=== PATIENT | female | born 1955 | race Caucasian/White ===

== ENCOUNTER 2021-11-30 16:55 | Observation (INO) | payer MEDICARE ==
--- OUTSIDE RECORDS SUMMARY | 2021-11-30 16:59 | XMS REPORT | Continuity of Care Document ---
:1955 Author Organization [facility] t Address [address] [place] [address] Care Team Providers Name Role Phone Pcp, Patient Does Not Have A Primary Care Physician [phone] Franci Valdivia Attending Clinician Unavailable Denisse Bailey Attending Clinician Unavailable Sheth_M Attending Clinician Unavailable OWENS_T Attending Clinician Unavailable Lara Ramirez Attending Clinician Trudi Scott RN Attending Clinician Unavailable Only, Ang Db Test Attending Clinician Unavailable Unknown, Attending Attending Clinician Unavailable UNKNOWN, ATTENDING Attending Clinician Unavailable BWilliams Attending Clinician Unavailable Lab, Adc Fam Pob I Attending Clinician Unavailable Caterina Melgar Attending Clinician CATERINA DEE Attending Clinician Unavailable Sobia Tolliver Attending Clinician SOBIA ANTONIO Attending Clinician Unavailable Doctor Unassigned, [place] Attending Clinician Unavailable LARISA Attending Clinician Unavailable Sheth_M Admitting Clinician Unavailable OWENS_T Admitting Clinician Unavailable BWilliams Admitting Clinician Unavailable AMBREENSATYA Admitting Clinician Unavailable Payers Payer Name Policy Type Policy Number Effective Date Expiration Date S cassi [facility] DAYZJR 2020 (MEDICARE 00:00:00 REPLACEMENT HMO) [facility] [id number] (MEDICARE 00:00:00 REPLACEMENT/ADVANTAG E - HMO) [facility] [id number] [place]ICARE [place]: [id number] 2018 [facility] - 00:00:00 [facility] MEDICARE B[place]: [id number] 2018 [facility] 00:00:00 Problems Condition Condition Condition Status Onset Resolution Last Treating Co mments Source Name Details Category Date Date Treatment Clinician Date Chronic Chronic Problem Active [place] obstructiv Obstructiv 11-11 da e lung e Lung 00:00: [facility] disease Disease 00 al Health Outreac h Program Allergies, Adverse Reactions, Alerts Allergy Allergy Status Severity Reaction(s) Onset Inactive Treating Comm ents Source Name Type Date Date Clinician NO KNOWN Drug Active Univers ALLERGIE Class ity of [facility] Social History Social Habit Start Date Stop Date Quantity Comments Source Exposure to Not sure [facility] SARS-CoV-2 (event) Medica l Branch Sex Assigned At [birth year] [facility] 00:00:00 00:00:00 [facility] Smoking Status Start Date Stop Date Source Unknown if ever smoked [facility] Former Smoker [facility] Medications Ordered Filled Start Stop Current Ordering Indication Dosage Frequency Signature Comments Components Source Medication Medication Date Date Medication? Clinician (SIG) Name Name albuterol albuterol No 2puff(s Q6H albuterol [place] sulfate HFA sulfate HFA ) sulfate da 90 90 HFA 90 [facility] mcg/actuati mcg/actuati mcg/actuat al on aerosol on aerosol ion Hea lth inhaler inhaler aerosol Outrea c Inhale 2 Inhale 2 inhaler h puffs every puffs every Inhale 2 Program 6 hours by 6 hours by puffs inhalation inhalation every 6 route as route as hours by needed. needed. inhalation route as needed. atorvastati atorvastati No 1 Q1D atorvastat [place] n 40 mg n 40 mg in 40 mg da tablet Take tablet Take tablet [facility] 1 tablet 1 tablet Take 1 al every day every day tablet Hea lth by oral by oral every day Outr eac route. route. by oral h route. Program citalopram citalopram No citalopram [place] 20 mg 20 mg 20 mg da tablet TAKE tablet TAKE tablet [facility] 1 TABLET BY 1 TABLET BY TAKE 1 al MOUTH ONCE MOUTH ONCE TABLET BY Health DAILY DAILY MOUTH ONCE Outreac DAILY h Program levothyroxi levothyroxi No levothyrox [place] ne 25 mcg ne 25 mcg ine 25 mcg da tablet TAKE tablet TAKE tablet [facility] 1 TABLET BY 1 TABLET BY TAKE 1 al MOUTH ONCE MOUTH ONCE TABLET BY Health DAILY DAILY MOUTH ONCE Outreac DAILY h Program omeprazole omeprazole No omeprazole [place] 20 mg 20 mg 20 mg da capsule,del capsule,del capsule,de [facility] ayed ayed layed al release TK release TK release TK Health 1 C PO QD 1 C PO QD 1 C PO QD Outreac h Program Symbicort Symbicort No Symbicort [place] 160 mcg-4.5 160 mcg-4.5 160 d a mcg/actuati mcg/actuati mcg-4.5 [facility] on HFA on HFA mcg/actuat al aerosol aerosol ion HFA Health inhaler INL inhaler INL aerosol Outreac 2 PFS PO 2 PFS PO inhaler h BID BID INL 2 PFS Program PO BID Immunizations Ordered Filled Immunization Date Status Comments [facility] e Immunization Name Name SARS-COV-2 COVID-19 2020-06-23 Completed Unive rsity of PFIZER VACCINE 00:00:00 [facility] SARS-COV-2 COVID-19 2020-06-23 Completed Unive rsity of PFIZER VACCINE 00:00:00 [facility] SARS-COV-2 COVID-19 2020-06-23 Completed Unive rsity of PFIZER VACCINE 00:00:00 [facility] SARS-COV-2 COVID-19 2020-06-02 Completed Unive rsity of PFIZER VACCINE 00:00:00 [facility] SARS-COV-2 COVID-19 2020-06-02 Completed Unive rsity of PFIZER VACCINE 00:00:00 [facility] SARS-COV-2 COVID-19 2020-06-02 Completed Unive rsity of PFIZER VACCINE 00:00:00 [facility] influenza, influenza, 2019-01-25 Completed [facility] injectable, injectable, 13:10:04 [facility] He alth quadrivalent, quadrivalent, Outreach Program preservative free preservative free Tdap Tdap 2018-12-23 Completed [facility] 12:32:57 [facility] Outreach Progr am pneumococcal pneumococcal 2018-12-23 Completed [facility] conjugate PCV 13 conjugate PCV 13 12:31:43 [facility] Outreach Progr am Vital Signs Vital Name Observation Time Observation Value Comments Source BP Diastolic 2019-09-15 00:00:00 78 mm[Hg] [facility] Height 2019-09-15 00:00:00 59 [in_i] [facility] BMI (Body Mass 2019-09-15 00:00:00 21.1 kg/m2 [place]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) Health Outreach Program BP Systolic 2019-09-15 00:00:00 122 mm[Hg] [facility] Body Weight 2019-09-15 00:00:00 1675.2 [oz_av] [place]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 [facility] BP Diastolic 2019-05-05 00:00:00 80 [facility] Height 2019-05-05 00:00:00 59 [in_i] [facility] BMI (Body Mass 2019-05-05 00:00:00 20.2 kg/m2 [place]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) Health Outreach Program BP Systolic 2019-05-05 00:00:00 136 mm[Hg] [facility] Body Weight 2019-05-05 00:00:00 99.9 [lb_av] [facility] BP Diastolic 2019-03-24 00:00:00 88 mm[Hg] [facility] Height 2019-03-24 00:00:00 59 [in_i] [facility] BMI (Body Mass 2019-03-24 00:00:00 19.1 kg/m2 [place]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) Health Outreach Program BP Systolic 2019-03-24 00:00:00 128 mm[Hg] [place] [facility] Body Weight 2019-03-24 00:00:00 94.8 [lb_av] [facility] BP Diastolic 2019-03-23 00:00:00 81 mm[Hg] [facility] Height 2019-03-23 00:00:00 59 [in_i] [place] [facility] BMI (Body Mass 2019-03-23 00:00:00 19.5 kg/m2 [place]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) Health Outreach Program BP Systolic 2019-03-23 00:00:00 132 mm[Hg] [facility] Body Weight 2019-03-23 00:00:00 96.3 [lb_av] [facility] BP Diastolic 2019-02-24 00:00:00 84 mm[Hg] [facility] Height 2019-02-24 00:00:00 59 [in_i] [facility] BMI (Body Mass 2019-02-24 00:00:00 19.9 kg/m2 [place]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) Health Outreach Program BP Systolic 2019-02-24 00:00:00 136 mm[Hg] [facility] Body Weight 2019-02-24 00:00:00 98.3 [lb_av] [facility] BP Diastolic 2019-01-25 00:00:00 78 mm[Hg] [facility] Height 2019-01-25 00:00:00 59 [in_i] [facility] BMI (Body Mass 2019-01-25 00:00:00 19.6 kg/m2 [place]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) Health Outreach Program BP Systolic 2019-01-25 00:00:00 112 mm[Hg] [facility] Body Weight 2019-01-25 00:00:00 96.8 [lb_av] [place] [facility] BP Diastolic 2018-12-23 00:00:00 70 mm[Hg] [place] [facility] Height 2018-12-23 00:00:00 59 [in_i] [place] [facility] BMI (Body Mass 2018-12-23 00:00:00 20 kg/m2 [place]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) Health Outreach Program BP Systolic 2018-12-23 00:00:00 136 mm[Hg] [facility] Body Weight 2018-12-23 00:00:00 99 [lb_av] [facility] BP Diastolic 2018-11-25 00:00:00 82 mm[Hg] [place] [facility] Height 2018-11-25 00:00:00 59 [in_i] [facility] BMI (Body Mass 2018-11-25 00:00:00 19.3 kg/m2 [place]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) Health Outreach Program BP Systolic 2018-11-25 00:00:00 130 mm[Hg] [place] [facility] Body Weight 2018-11-25 00:00:00 95.6 [lb_av] [facility] BP Diastolic 2018-11-11 00:00:00 70 mm[Hg] [facility] Height 2018-11-11 00:00:00 59 [in_i] [facility] BMI (Body Mass 2018-11-11 00:00:00 19.5 kg/m2 [place]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) Health Outreach Program BP Systolic 2018-11-11 00:00:00 112 mm[Hg] [facility] Body Weight 2018-11-11 00:00:00 96.5 [lb_av] [facility] Procedures Procedure Date / Time Performing Clinician Source Performed ELECTROCARDIOGRAM, 2019-02-04 00:00:00 [facility] COMPLETE Health Outreach Program DXA BONE DENSITY, AXIAL 2019-01-25 00:00:00 Ruvalcaba danika [facility] [place], thyroid 2018-12-23 00:00:00 [facility] LDCT, chest, for lung 2018-11-25 00:00:00 [place]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 [facility] cancer screening Health Outreach Program MAMMO, diagnostic, 2018-11-11 00:00:00 [facility] digital, bilateral Health Outrea ch Program US, breast, bilateral 2018-11-11 00:00:00 [place]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 [facility] Splenectomy [facility] Hysteroscopy [facility] Plan of Care Planned Activity Planned Date Details Comments Source Future Scheduled 2019-12-16 lipid panel, serum [place] [facility] Test 00:00:00 [code = lipid Health Outreac h panel, serum] Program Future Scheduled 2019-12-16 CMP, serum or [facility] Test 00:00:00 plasma [code = Health Outrea ch CMP, serum or Program plasma] Future Scheduled 2019-12-16 TSH + free T4, [facility] Test 00:00:00 serum [code = TSH Health Out reach + free T4, serum] Program Encounters Start End Encounter Admission Attending Care Care Encounter Source Date/Time Date/Time Type Type Clinicians Facility Department ID 2021-04-10 Outpatient Valdivia, Na STLMLC STLMLC [id number] Common 13:56:21 [id number] [facility] 2021-04-10 Outpatient Valdivia, Na STLMLC STLMLC [id number] 2 Common 13:46:37 06727 [facility] 2021-04-10 Outpatient Valdivia, Na STLMLC STLMLC [id number] 2 Common 13:45:36 [id number] [facility] 2021-04-10 Outpatient Valdivia, Na STLMLC STLMLC [id number] 2 Common 12:43:39 [id number] [facility] 2021-04-10 Outpatient Valdivia, Na STLMLC STLMLC [id number] 2 Common 12:43:03 [id number] [facility] 2021-04-10 Outpatient STLMLC STLMLC [id number] Common 12:36:02 [id number] [facility] 2021-04-10 Outpatient STLMLC STLMLC [id number] Common 12:34:56 [id number] [facility] 2021-04-10 Outpatient STLMLC STLMLC [id number] Common 12:17:58 [id number] [facility] 2021-04-10 Outpatient Millender, STLMLC STLMLC [id number] Common 11:57:24 Denisse [id number] [facility] 2021-04-10 Outpatient Millender, STLMLC STLMLC [id number] Common 11:56:21 Denisse [id number] [facility] 2021-04-10 Outpatient Millender, STLMLC STLMLC [id number] Common 11:32:19 Denisse [id number] [facility] 2021-11-25 2021-11-25 ambulatory STLMLC STLMLC [id number] Common 00:00:00 00:00:00 [facility] 2021-11-19 2021-11-19 ambulatory STLMLC STLMLC [id number] Common 00:00:00 00:00:00 [facility] 2021-11-14 2021-11-14 Outpatient Shebarbi_M [facility] [id number] [facility] 00:00:00 00:00:00 0901 [facility] 2021-11-13 2021-11-13 ambulatory STLMLC STLMLC [id number] Common 00:00:00 00:00:00 [facility] 2021-11-13 2021-11-13 ambulatory STLMLC STLMLC [id number] Common 00:00:00 00:00:00 [facility] 2021-11-13 2021-11-13 ambulatory STLMLC STLMLC [id number] Common 00:00:00 00:00:00 [facility] 2021-10-29 2021-10-29 ambulatory STLMLC STLMLC [id number] Common 00:00:00 00:00:00 [facility] 2021-10-16 2021-10-16 ambulatory STLMLC STLMLC [id number] Common 00:00:00 00:00:00 [facility] 2021-09-27 2021-09-27 Outpatient OWENS_T DMG DMG [id number] Devoted 03:30:00 03:30:00 0715 [facility] l [facility] 2021-09-13 2021-09-13 ambulatory STLMLC STLMLC [id number] Common 00:00:00 00:00:00 [facility] 2021-05-03 2021-05-03 [facility] [id number] [facility] 09:00:00 09:00:00 0218 [facility]ica l [facility] 2021-04-11 2021-04-11 ambulatory STLMLC STLMLC [id number] Common 00:00:00 00:00:00 [facility] 2021-03-18 2021-03-18 CAV Tomora [id number]. [id number]. CLAC [id number] [facility] 15:00:00 16:00:00 Ramirez [id number] [facility] [id number] 2021-03-13 2021-03-13 Outpatient OWENS_T DMG [facility] [id number] Devoted 11:25:00 11:25:00 1229 Medica l Group 2020-11-23 2020-11-23 Letter DILLON Scott [id number] Univers 00:00:00 00:00:00 (Out) Trudi CORTEZ [id number] it y of [facility] [id number] [place] as [phone] [address] 2020-11-21 2020-11-21 Laboratory Only, Ang Db Test [facility] 1.2.8 40.114 [id number] Univers 17:15:54 17:18:52 Only Unknown, Attending [facility] [id number] [facility] [id number] [place] as Contreras?Blea [phone] [address] Medical Office Building 2020-11-21 2020-11-21 Outpatient [facility] [id number] Univers 17:15:00 17:15:00 [id number] ity [facility] 2020-11-21 2020-11-21 Outpatient R UNKNOWN, [facility] [id number] Univers 17:15:00 17:15:00 ATTENDING ity [facility] 2020-11-21 2020-11-21 Outpatient STLMLC STLC [id number] Common 00:00:00 00:00:00 [facility] 2020-09-18 2020-09-18 Outpatient STLMLC STLMLC [id number] Common 00:00:00 00:00:00 [facility] 2020-09-13 2020-09-13 Outpatient STLMLC STLMLC [id number] Common 00:00:00 00:00:00 [facility] 2020-09-03 2020-09-03 Outpatient STLMLC STLMLC [id number] Common 00:00:00 00:00:00 [facility] 2020-08-29 2020-08-29 Outpatient STLMLC STLMLC [id number] Common 00:00:00 00:00:00 [facility] 2020-07-27 2020-07-27 Outpatient STLMLC STLMLC [id number] Common 00:00:00 00:00:00 [facility] 2020-07-24 2020-07-24 Outpatient BWilliams DMG DMG [id number] [facility] 02:35:00 02:35:00 0511 Medica l Group 2020-07-18 2020-07-18 Outpatient STLMLC STLMLC [id number] Common 00:00:00 00:00:00 [facility] 2020-07-18 2020-07-18 Outpatient STLMLC STLMLC [id number] Common 00:00:00 00:00:00 [facility] 2020-06-23 2020-06-23 Outpatient [facility] [id number] Univers 09:50:00 09:50:00 [facility] 2020-06-06 2020-06-06 Outpatient STLMLC STLMLC [id number] Common 00:00:00 00:00:00 [facility] 2020-06-02 2020-06-02 Outpatient [facility] [id number] Univers 09:45:00 09:45:00 [facility] 2020-04-12 2020-04-12 Outpatient R [facility] [id number] Univers 08:00:00 08:00:00 [id number] [facility] 2020-04-11 2020-04-11 Laboratory Lab, [facility] Fam Pob I [facility] 1.2. 840.114 [id number] Univers 17:25:34 17:45:34 Only Caterina [facility] [id number] ity of [place] [id number] Baltazar as Professio [phone] [address] Office Building One 2020-04-11 2020-04-11 Laboratory Lab, [facility] 1..840.114 [id number] 17:25:34 17:45:34 Only Fam Pob I Health [id number] [place] [id number] Professio [phone] [place] [address] Office [address] One 2020-04-11 2020-04-11 Outpatient R [facility] [id number] Univers 17:40:00 17:40:00 [id number] y [facility] 2020-04-11 2020-04-11 Outpatient R MILADY [facility] [id number] Univers 17:40:00 17:40:00 CATERINA saenz [facility] 2020-01-04 2020-01-04 Outpatient STLMLC STLMLC [id number] Common 00:00:00 00:00:00 [facility] 2019-10-04 2019-10-04 Outpatient STLMLC STLMLC [id number] Common 00:00:00 00:00:00 [facility] 2019-09-27 2019-09-27 Laboratory Lab, [facility] Pob I [facility] 1.. 840.114 [id number] Univers 10:50:40 11:10:40 Only [facility] [id number] ity of [place] [id number] [place] as Professio [phone] [address] Office Building One 2019-09-27 2019-09-27 Laboratory Lab, [facility] 1.2.840.114 [id number] 10:50:40 11:10:40 Only Fam Pob I Health [id number] [place] [id number] Professio [phone] [place] [address] Office [address] One 2019-09-27 2019-09-27 Outpatient R JHOAN, [facility] [id number] Univers 11:00:00 11:00:00 SOBIA emmyana [facility] 2019-09-27 2019-09-27 Letter Doctor DILLON 1.2.840.114 [id number] Univers 00:00:00 00:00:00 (Out) Unassigned, DIEGO [id number] ity of [place] [facility] [id number] [place] as [phone] [address] 2019-09-27 2019-09-27 Letter Doctor DILLON 1.2.840.114 [id number] 00:00:00 00:00:00 (Out) Unassigned, [id number] [facility] [id number] [id number] 2019-09-15 2019-09-15 Outpatient AMBREEN_FAR [facility] [place] [id number] [place] 12:23:00 12:23:00 HANA 0702 [facility] 2019-09-15 2019-09-15 [facility] [place] - [id number] M atagor 00:00:00 00:00:00 Mary Ann Villanueva MD: [id number] [facility] 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 2019-09-13 2019-09-13 Outpatient AMBREEN_FAR WIHOP [facility] [id number] [place] 01:03:00 01:03:00 HANA 0630 [facility] 2019-09-08 2019-09-08 Outpatient AMBREEN_FAR MEHOP [facility] 880 [place] 12:10:00 12:10:00 HANA 0625 [facility] 2019-08-31 2019-08-31 Outpatient AMBREEN_FAR WIHOP [facility] 880 [place] 12:44:00 12:44:00 HANA 0617 [facility] 2019-07-27 2019-07-27 Outpatient AMBREEN_FAR MEHOP MEHOP [id number] [place] 12:38:00 12:38:00 HANA 0513 [facility] 2019-06-22 2019-06-22 Outpatient AMBREEN_FAR MEHOP MEHOP [id number] [place] 01:23:00 01:23:00 HANA 0408 [facility] 2019-05-05 2019-05-05 Outpatient AMBREEN_FAR MEHOP MEHOP [id number] [place] 02:12:00 02:12:00 HANA 0220 [facility] 2019-05-05 2019-05-05 Jodie [facility] [place] - [id number] M atagor 00:00:00 00:00:00 Mary Ann Villanueva MD: [id number] [facility] Ep[facility] copper pl[place] 59 HOP - [facility], [facility] Program [phone] , Ph. 2019-04-28 2019-04-28 Outpatient AMBREEN_FAR MEHOP MEHOP [id number] [place] 03:09:00 03:09:00 HANA 0213 [facility] 2019-04-14 2019-04-14 Outpatient AMBREEN_FAR MEHOP MEHOP [id number] [place] 02:16:00 02:16:00 HANA 0130 [facility] 2019-04-01 2019-04-01 Outpatient AMBREEN_FAR MEHOP MEHOP [id number] [place] 12:09:00 12:09:00 HANA 0117 [facility] 2019-03-24 2019-03-24 Outpatient AMBREEN_FAR MEHOP MEHOP [id number] [place] 12:32:00 12:32:00 HANA 0109 [facility] 2019-03-24 2019-03-24 Jodie [facility] [place] - [id number] M atagor 00:00:00 00:00:00 Mary Ann Villanueva MD: [id number] [facility] Ep[facility] [place] 59 HOP - [facility], [facility] [place] Program [phone] , Ph. 2019-03-23 2019-03-23 Outpatient AMBREEN_BRIE [facility] 88 [place] 05:34:00 05:34:00 HANA 0108 da [facility] Program 2019-03-23 2019-03-23 Dax Waterman [facility] [place] - [id number] [place] 00:00:00 00:00:00 Mar yAnn Christy MD: [id number] [facility] [place] [address] [facility] A, [facility] [place] Program [phone] , Ph. 2019-03-21 2019-03-21 Outpatient AMBREEN_BRIE [place] [id number] [place] 03:07:00 03:07:00 HANA 0106 da [facility] Program 2019-02-24 2019-02-24 Jodie [facility] [place] - [id number] M atagor 00:00:00 00:00:00 Mary Ann Villanueva MD: [id number] [facility] [place] [address] [facility] A, [facility] [place] Program [phone] , Ph. 2019-01-25 2019-01-25 Jodie [facility] [place] - [id number] M atagor 00:00:00 00:00:00 Mary Ann Villanueva MD: [id number] [facility] Ep[facility] [place] [address] [facility] A, [facility] [place] Program [phone] , Ph. 2018-12-23 2018-12-23 Jodie [facility] [place] - [id number] M atagor 00:00:00 00:00:00 Mary Ann Villanueva MD: [id number] [facility] [place] [address] [facility] A, [facility] [place] Program [phone] , Ph. 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 2018-11-11 2018-11-11 Jodie [place] - [id number] atagor 00:00:00 00:00:00 Mary Ann Villanueva MD: [id number] [facility] Epis copper plater [place] [address] [facility] [address], [facility] [place] Program [phone] , Ph. Results Test Description Test Time Test Comments Results Result Comments Source Comprehensive metabolic 2000 panel - Serum or Plasma 2019-08 00:00:00 Test Item Value Reference Range Interpretation Comme nts glucose (test code = glucose) 81 mg/dL 70-99 BUN (test code = BUN) 18 mg/dL 8-23 creatinine (test code = creatinine) 0.75 mg/dL 0.60-1.30 eGFR amer. (test code = eGFR amer.) 96 mL/min/1.73 >60 eGFR non- amer. (test code = eGFR non- 83 mL/min/1.73 >60 amer.) calc BUN/creat (test code = calc BUN/creat) 24 ratio 6-28 sodium (test code = sodium) 144 mEq/L 133-146 potassium (test code = potassium) 5.1 mEq/L 3.5-5.4 chloride (test code = chloride) 104 mEq/L 95-107 carbon dioxide (test code = carbon dioxide) 25 mEq/L 19-31 calcium (test code = calcium) 10.0 mg/dL 8.5-10.5 protein, total (test code = protein, total) 7.5 g/dL 6.1-8.3 albumin (test code = albumin) 4.7 g/dL 3.5-5.2 calc globulin (test code = calc globulin) 2.8 g/dL 1.9-3.7 calc A/G ratio (test code = calc A/G ratio) 1.7 ratio 1.0-2.6 bilirubin, total (test code = bilirubin, total) <0.2 <=1.2 alkaline phosphatase (test code = alkaline phosphatase) 72 U/L 40-142 AST (test code = AST) 17 U/L 9-40 ALT (test code = ALT) 12 U/L 5-40 [facility] - Serum or Plasma 2019-09-09 00:00:00 Test Item Value Reference Range Interpretation Comments cholesterol (test code = 203 mg/dL <200 H cholesterol) triglycerides (test code = 135 mg/dL <150 triglycerides) HDL cholesterol (test code = HDL 51 mg/dL >39 cholesterol) Cholesterol in LDL [Mass/volume] 127 mg/dL <100 H in Serum or Plasma (test code = 2089-1) risk ratio LDL/HDL (test code = 2.49 ratio <3.22 risk ratio LDL/HDL) [facility] T[facility] - Serum or [id number] 00:00:00 Test Item Value Reference Range Interpretation Comments TSH, third generation (test code 2.690 uIU/mL 0.400-4.100 = TSH, third generation) free T4 (thyroxine) (test code = 0.84 NG/dL 0.80-1.90 free T4 (thyroxine)) [facility] 1995 panel - Serum or Plasma 2019-04-29 00:00:00 Test Item Value Reference Range Interpretation Comments cholesterol (test code = 225 mg/dL <200 H cholesterol) triglycerides (test code = 155 mg/dL <150 H triglycerides) HDL cholesterol (test code = HDL 53 mg/dL >39 cholesterol) Cholesterol in LDL [Mass/volume] 141 mg/dL <100 H in Serum or Plasma (test code = 2089-1) risk ratio LDL/HDL (test code = 2.66 ratio <3.22 risk ratio LDL/HDL) [facility] 2000 panel - Serum or [id number] 00:00:00 Test Item Value Reference Range Interpretation Comments glucose (test code = glucose) 84 mg/dL 70-99 BUN (test code = BUN) 6 mg/dL 8-23 L creatinine (test code = 0.73 mg/dL 0.60-1.30 creatinine) eGFR amer. (test code 99 mL/min/1.73 >60 = eGFR amer.) eGFR non- amer. (test 86 mL/min/1.73 >60 code = eGFR non- amer.) calc BUN/creat (test code = 8 ratio 6-28 calc BUN/creat) sodium (test code = sodium) 142 mEq/L 133-146 potassium (test code = 4.4 mEq/L 3.5-5.4 potassium) chloride (test code = 101 mEq/L 95-107 chloride) carbon dioxide (test code = 26 mEq/L 19-31 carbon dioxide) calcium (test code = calcium) 9.7 mg/dL 8.5-10.5 protein, total (test code = 7.4 g/dL 6.1-8.3 protein, total) albumin (test code = albumin) 4.5 g/dL 3.5-5.2 calc globulin (test code = 2.9 g/dL 1.9-3.7 calc globulin) calc A/G ratio (test code = 1.6 ratio 1.0-2.6 calc A/G ratio) bilirubin, total (test code = 0.3 mg/dL <=1.2 bilirubin, total) alkaline phosphatase (test 85 U/L 40-142 code = alkaline phosphatase) AST (test code = AST) 24 U/L 9-40 ALT (test code = ALT) 14 U/L 5-40 [facility] T[facility] panel - Serum or [id number] 00:00:00 Test Item Value Reference Range Interpretation Comments TSH, third generation (test code 3.910 uIU/mL 0.400-4.100 = TSH, third generation) free T4 (thyroxine) (test code = 0.89 NG/dL 0.80-1.90 free T4 (thyroxine)) [facility] HospitalHepatitis C virus Ab [Units/volume] in [id number] 00:00:00 Test Item Value Reference Range Interpretation Comments hepatitis C antibody (test code non-reactive non-reactive = hepatitis C antibody) [facility] virus Ab [Units/volume] in [id number] 00:00:00 Test Item Value Reference Range Interpretation Comments hepatitis C antibody (test code non-reactive non-reactive = hepatitis C antibody) [facility]Hep[facility] virus Ab [Units/volume] in [id number] 00:00:00 Test Item Value Reference Range Interpretation Comments hepatitis C antibody (test code non-reactive non-reactive = hepatitis C antibody) [facility] HospitalChlamydia trachomatis+Neisseria gonorrhoeae DNA [Presence] in Urine by Probe and target amplification method 2019-02-26 00:00:00 Test Item Value Reference Range Interpretation Comments chlamydia by tma (test code = negative negative chlamydia by tma) gonorrhea by tma (test code = negative negative gonorrhea by tma) [facility] HospitalChlamydia trachomatis+Neisseria gonorrhoeae DNA [Presence] in Urine by Probe and target amplification method 2019-02-26 00:00:00 Test Item Value Reference Range Interpretation Comments chlamydia by tma (test code = negative negative chlamydia by tma) gonorrhea by tma (test code = negative negative gonorrhea by tma) [facility]Chlamydia trachomatis+Neisseria gonorrhoeae DNA [Presence] in Urine by Probe and target amplification method 2019-02-26 00:00:00 Test Item Value Reference Range Interpretation Comments chlamydia by tma (test code = negative negative chlamydia by tma) gonorrhea by tma (test code = negative negative gonorrhea by tma) [facility] Hospitaltrich[facility] vaginalis RNA, urine 2019-02-25 00:00:00 Test Item Value Reference Range Interpretation Comments trichomonas, urine, amp (test code = positive A trichomonas, urine, amp) [facility], urine 2019-02-25 00:00:00 Test Item Value Reference Range Interpretation Comments trichomonas, urine, amp (test code = positive A trichomonas, urine, amp) [facility] Programtrichomonas vaginalis RNA, urine 2019-02-25 00:00:00 Test Item Value Reference Range Interpretation Comments trichomonas, urine, amp (test code = positive A trichomonas, urine, amp) [facility] 1996 panel - Serum or Plasma 2019-02-18 00:00:00 Test Item Value Reference Range Interpretation Comments cholesterol (test code = 262 mg/dL <200 H cholesterol) triglycerides (test code = 244 mg/dL <150 H triglycerides) HDL cholesterol (test code = HDL 35 mg/dL >39 L cholesterol) Cholesterol in LDL [Mass/volume] 178 mg/dL <100 H in Serum or Plasma (test code = 2089-1) risk ratio LDL/HDL (test code = 5.09 ratio <3.22 H risk ratio LDL/HDL) [facility] HospitalCom[facility] 1999 panel - Serum or [id number] 00:00:00 Test Item Value Reference Range Interpretation Comments glucose (test code = glucose) 81 mg/dL 70-99 BUN (test code = BUN) 10 mg/dL 8-23 creatinine (test code = 0.68 mg/dL 0.60-1.30 creatinine) eGFR amer. (test code 106 mL/min/1.73 >60 = eGFR amer.) eGFR non- amer. (test 92 mL/min/1.73 >60 code = eGFR non- amer.) calc BUN/creat (test code = 15 ratio 6-28 calc BUN/creat) sodium (test code = sodium) 140 mEq/L 133-146 potassium (test code = 4.7 mEq/L 3.5-5.4 potassium) chloride (test code = 101 mEq/L 95-107 chloride) carbon dioxide (test code = 27 mEq/L 19-31 carbon dioxide) calcium (test code = calcium) 9.3 mg/dL 8.5-10.5 protein, total (test code = 7.1 g/dL 6.1-8.3 protein, total) albumin (test code = albumin) 3.9 g/dL 3.5-5.2 calc globulin (test code = 3.2 g/dL 1.9-3.7 calc globulin) calc A/G ratio (test code = 1.2 ratio 1.0-2.6 calc A/G ratio) bilirubin, total (test code = <0.2 <=1.2 bilirubin, total) alkaline phosphatase (test 71 U/L 40-140 code = alkaline phosphatase) AST (test code = AST) 15 U/L 9-40 ALT (test code = ALT) 9 U/L 5-40 [facility]Free T4 and TSH panel - Serum or [id number] 00:00:00 Test Item Value Reference Range Interpretation Comments TSH, third generation (test 11.100 uIU/mL 0.400-4.100 H code = TSH, third generation) free T4 (thyroxine) (test code 0.49 NG/dL 0.80-1.90 L = free T4 (thyroxine)) [facility] HospitalLip[facility] 1996 panel - Serum or Plasma 2019-02-18 00:00:00 Test Item Value Reference Range Interpretation Comments cholesterol (test code = 262 mg/dL <200 H cholesterol) triglycerides (test code = 244 mg/dL <150 H triglycerides) HDL cholesterol (test code = HDL 35 mg/dL >39 L cholesterol) Cholesterol in LDL [Mass/volume] 178 mg/dL <100 H in Serum or Plasma (test code = 2089-1) risk ratio LDL/HDL (test code = 5.09 ratio <3.22 H risk ratio LDL/HDL) [facility] HospitalCom[facility] 2000 panel - Serum or [id number] 00:00:00 Test Item Value Reference Range Interpretation Comments glucose (test code = glucose) 81 mg/dL 70-99 BUN (test code = BUN) 10 mg/dL 8-23 creatinine (test code = 0.68 mg/dL 0.60-1.30 creatinine) eGFR amer. (test code 106 mL/min/1.73 >60 = eGFR amer.) eGFR non- amer. (test 92 mL/min/1.73 >60 code = eGFR non- amer.) calc BUN/creat (test code = 15 ratio 6-28 calc BUN/creat) sodium (test code = sodium) 140 mEq/L 133-146 potassium (test code = 4.7 mEq/L 3.5-5.4 potassium) chloride (test code = 101 mEq/L 95-107 chloride) carbon dioxide (test code = 27 mEq/L 19-31 carbon dioxide) calcium (test code = calcium) 9.3 mg/dL 8.5-10.5 protein, total (test code = 7.1 g/dL 6.1-8.3 protein, total) albumin (test code = albumin) 3.9 g/dL 3.5-5.2 calc globulin (test code = 3.2 g/dL 1.9-3.7 calc globulin) calc A/G ratio (test code = 1.2 ratio 1.0-2.6 calc A/G ratio) bilirubin, total (test code = <0.2 <=1.2 bilirubin, total) alkaline phosphatase (test 71 U/L 40-140 code = alkaline phosphatase) AST (test code = AST) 15 U/L 9-40 ALT (test code = ALT) 9 U/L 5-40 [facility]Free T4 and TSH panel - Serum or [id number] 00:00:00 Test Item Value Reference Range Interpretation Comments TSH, third generation (test 11.100 uIU/mL 0.400-4.100 H code = TSH, third generation) free T4 (thyroxine) (test code 0.49 NG/dL 0.80-1.90 L = free T4 (thyroxine)) [facility] HospitalPap test, thinprep, imaged + HPV high risk + GC and chlamydia [id number] 00:00:00 Test Item Value Reference Range Interpretation Comments source: (test code = unspecified source:) slides: (test code = 1 slides:) LMP: (test code = not given LMP:) specimen adequacy: (note) (test code = specimen adequacy:) interpretation: (test nilm/no epith. code = abnormality;see below interpretation:) other comments: (test (note) code = other comments:) cloth cutter: carolin (test code = MONTRELL lilly(ascp)IAC cloth cutter:) QC technologist: (test MONTRELL carmona(ascp) code = KRISTIN IAC technologist:) location: (test code = (note) location:) CPT: (test code = (note) CPT:) HPV high risk interp positive negative A (test code = HPV high risk interp) HPV 16 (test code = negative HPV 16) HPV 18 (test code = negative HPV 18) HPV, HR, other positive A genotypes (test code = HPV, HR, other genotypes) gonorrhea, tma (test negative negative code = gonorrhea, tma) chlamydia, tma (test negative negative code = chlamydia, tma) [facility], thinprep, imaged + HPV high risk + GC and chlamydia [id number] 00:00:00 Test Item Value Reference Range Interpretation Comments source: (test code = unspecified source:) slides: (test code = 1 slides:) LMP: (test code = not given LMP:) specimen adequacy: (note) (test code = specimen adequacy:) interpretation: (test nilm/no epith. code = abnormality;see below interpretation:) other comments: (test (note) code = other comments:) cloth cutter: carolin (test code = MONTRELL lilly(ascp)IAC cloth cutter:) QC technologist: (test son choiCT(ascp) code = QC IAC technologist:) location: (test code = (note) location:) CPT: (test code = (note) CPT:) HPV high risk interp positive negative A (test code = HPV high risk interp) HPV 16 (test code = negative HPV 16) HPV 18 (test code = negative HPV 18) HPV, HR, other positive A genotypes (test code = HPV, HR, other genotypes) gonorrhea, tma (test negative negative code = gonorrhea, tma) chlamydia, tma (test negative negative code = chlamydia, tma) [facility] Hospitalfecal occult blood, [id number] 14:30:00 Test Item Value Reference Range Interpretation Comments Occult Blood (test code = Occult negative Blood) [facility]cal occult blood, [id number] 14:30:00 Test Item Value Reference Range Interpretation Comments Occult Blood (test code = Occult negative Blood) [facility] occult blood, [id number] 14:30:00 Test Item Value Reference Range Interpretation Comments Occult Blood (test code = Occult negative Blood) [facility] HospitalHemoglobin A1c/Hemoglobin.total in [id number] 00:00:00 Test Item Value Reference Range Interpretation Comments Hemoglobin A1c/Hemoglobin.total in 5.6 % 4.2-5.6 Blood (test code = 4548-4) [facility]Com[facility] 2000 panel - Serum or [id number] 00:00:00 Test Item Value Reference Range Interpretation Comments glucose (test code = glucose) 78 mg/dL 70-99 BUN (test code = BUN) 12 mg/dL 8-23 creatinine (test code = 0.66 mg/dL 0.60-1.30 creatinine) eGFR amer. (test code 107 mL/min/1.73 >60 = eGFR amer.) eGFR non- amer. (test 93 mL/min/1.73 >60 code = eGFR non- amer.) calc BUN/creat (test code = 18 ratio 6-28 calc BUN/creat) sodium (test code = sodium) 142 mEq/L 133-146 potassium (test code = 4.7 mEq/L 3.5-5.4 potassium) chloride (test code = 102 mEq/L 95-107 chloride) carbon dioxide (test code = 28 mEq/L 19-31 carbon dioxide) calcium (test code = calcium) 9.5 mg/dL 8.5-10.5 protein, total (test code = 7.2 g/dL 6.1-8.3 protein, total) albumin (test code = albumin) 4.5 g/dL 3.5-5.2 calc globulin (test code = 2.7 g/dL 1.9-3.7 calc globulin) calc A/G ratio (test code = 1.7 ratio 1.0-2.6 calc A/G ratio) bilirubin, total (test code = <0.2 <=1.2 bilirubin, total) alkaline phosphatase (test 78 U/L 40-140 code = alkaline phosphatase) AST (test code = AST) 13 U/L 9-40 ALT (test code = ALT) 5 U/L 5-40 [facility] HospitalCB W Auto Differential panel - Blood 2018-12-17 00:00:00 Test Item Value Reference Range Interpretation Comments WBC (test code = WBC) 10.3 K/uL 4.0-11.0 RBC (test code = RBC) 4.32 M/uL 3.80-5.10 hemoglobin (test code = hemoglobin) 14.3 g/dL 11.5-15.5 hematocrit (test code = hematocrit) 43.2 % 34.0-45.0 MCV (test code = MCV) 100.0 fL 80.0-100.0 MCH (test code = MCH) 33.1 pg 27.0-34.0 MCHC (test code = MCHC) 33.1 g/dL 32.0-35.5 RDW (test code = RDW) 13.2 % 11.0-15.0 neutrophils (test code = 49.0 % 40.0-74.0 neutrophils) lymphocytes (test code = 36.9 % 19.0-48.0 lymphocytes) monocytes (test code = monocytes) 8.5 % 4.0-13.0 eosinophils (test code = 3.9 % 0.0-7.0 eosinophils) basophils (test code = basophils) 1.7 % 0.0-2.0 platelet count (test code = 537 K/uL 130-400 H platelet count) [facility] 1996 panel - Serum or Plasma 2018-12-17 00:00:00 Test Item Value Reference Range Interpretation Comments cholesterol (test code = 301 mg/dL <200 H cholesterol) triglycerides (test code = 182 mg/dL <150 H triglycerides) HDL cholesterol (test code = HDL 44 mg/dL >39 cholesterol) Cholesterol in LDL [Mass/volume] 221 mg/dL <100 H in Serum or Plasma (test code = 2089-1) risk ratio LDL/HDL (test code = 5.01 ratio <3.22 H risk ratio LDL/HDL) [facility] HospitalThyrotropin [Units/volume] in Serum or [id number] 00:00:00 Test Item Value Reference Range Interpretation Comments TSH reflex to free T4 (test 13.500 uIU/mL 0.400-4.100 H code = TSH reflex to free T4) [facility] HospitalThyroxine (T4) free [Mass/volume] in Serum or [id number] 00:00:00 Test Item Value Reference Range Interpretation Comments free T4 (thyroxine) (test code = 0.51 NG/dL 0.80-1.90 L free T4 (thyroxine)) [facility] HospitalHemoglobin A1c/Hemoglobin.total in [id number] 00:00:00 Test Item Value Reference Range Interpretation Comments Hemoglobin A1c/Hemoglobin.total in 5.6 % 4.2-5.6 Blood (test code = 4548-4) [facility] HospitalComprehensive metabolic 2000 panel - Serum or [id number] 00:00:00 Test Item Value Reference Range Interpretation Comments glucose (test code = glucose) 78 mg/dL 70-99 BUN (test code = BUN) 12 mg/dL 8-23 creatinine (test code = 0.66 mg/dL 0.60-1.30 creatinine) eGFR amer. (test code 107 mL/min/1.73 >60 = eGFR amer.) eGFR non- amer. (test 93 mL/min/1.73 >60 code = eGFR non- amer.) calc BUN/creat (test code = 18 ratio 6-28 calc BUN/creat) sodium (test code = sodium) 142 mEq/L 133-146 potassium (test code = 4.7 mEq/L 3.5-5.4 potassium) chloride (test code = 102 mEq/L 95-107 chloride) carbon dioxide (test code = 28 mEq/L 19-31 carbon dioxide) calcium (test code = calcium) 9.5 mg/dL 8.5-10.5 protein, total (test code = 7.2 g/dL 6.1-8.3 protein, total) albumin (test code = albumin) 4.5 g/dL 3.5-5.2 calc globulin (test code = 2.7 g/dL 1.9-3.7 calc globulin) calc A/G ratio (test code = 1.7 ratio 1.0-2.6 calc A/G ratio) bilirubin, total (test code = <0.2 <=1.2 bilirubin, total) alkaline phosphatase (test 78 U/L 40-140 code = alkaline phosphatase) AST (test code = AST) 13 U/L 9-40 ALT (test code = ALT) 5 U/L 5-40 [facility] HospitalCBC W Auto Differential panel - Blood 2018-12-17 00:00:00 Test Item Value Reference Range Interpretation Comments WBC (test code = WBC) 10.3 K/uL 4.0-11.0 RBC (test code = RBC) 4.32 M/uL 3.80-5.10 hemoglobin (test code = hemoglobin) 14.3 g/dL 11.5-15.5 hematocrit (test code = hematocrit) 43.2 % 34.0-45.0 MCV (test code = MCV) 100.0 fL 80.0-100.0 MCH (test code = MCH) 33.1 pg 27.0-34.0 MCHC (test code = MCHC) 33.1 g/dL 32.0-35.5 RDW (test code = RDW) 13.2 % 11.0-15.0 neutrophils (test code = 49.0 % 40.0-74.0 neutrophils) lymphocytes (test code = 36.9 % 19.0-48.0 lymphocytes) monocytes (test code = monocytes) 8.5 % 4.0-13.0 eosinophils (test code = 3.9 % 0.0-7.0 eosinophils) basophils (test code = basophils) 1.7 % 0.0-2.0 platelet count (test code = 537 K/uL 130-400 H platelet count) [facility] 1996 panel - Serum or Plasma 2018-12-17 00:00:00 Test Item Value Reference Range Interpretation Comments cholesterol (test code = 301 mg/dL <200 H cholesterol) triglycerides (test code = 182 mg/dL <150 H triglycerides) HDL cholesterol (test code = HDL 44 mg/dL >39 cholesterol) Cholesterol in LDL [Mass/volume] 221 mg/dL <100 H in Serum or Plasma (test code = 2089-1) risk ratio LDL/HDL (test code = 5.01 ratio <3.22 H risk ratio LDL/HDL) [facility] HospitalThyrotropin [Units/volume] in Serum or [id number] 00:00:00 Test Item Value Reference Range Interpretation Comments TSH reflex to free T4 (test 13.500 uIU/mL 0.400-4.100 H code = TSH reflex to free T4) [facility] HospitalThyroxine (T4) free [Mass/volume] in Serum or [id number] 00:00:00 Test Item Value Reference Range Interpretation Comments free T4 (thyroxine) (test code = 0.51 NG/dL 0.80-1.90 L free T4 (thyroxine)) [facility] HospitalBREAST ULTRASOUND [id number] 11:42:12- BREAST ULTRASOUND RIGHTULTRASOUND OF RIGHT BREAST AND RIGHT AXILLA: 11/16/2018CLINICAL: Pain right breast. Comparison is made to exam dated 11/16/2018 mammogram - [facility]. Ultrasound of the right breast and axilla was performed. Segundo scale images of the real-time examination were revie wed. Benign-appearing intramammary node, right breast, 10 o'clock, 10 cm from the nipple. No suspicious sonographic findings within the right breast or axilla.IMPRESSION: BENIGN There is no sonographicevidence of malignancy. Resume annual screening mammography in one year. Bud mcnally/:11/16/2018 11:42:12 Multiple Coil Winder: Rebeca WONG, [facility]letter sent: BIRADS 1-2 Combo FU Letter Ultrasound BI-RADS: 2 BenignDIAG MAMM BILATERAL ACROL CAD [id number] 11:41:08 - DIAG MAMM BILATERAL CAROL CAD DIGITALBILATERAL DIGITAL DIAGNOSTIC MAMMOGRAM 3D/2D WITH CAD: 11/16/2018CLINICAL: Diffuse pain, right breast. Digital breast tomosynthesis was performed in addition to routine CC and MLO views. Current mammographic images were evaluated by either a [employer] M-Vu or a [employer] ImageChecker CAD (computer aided detection system). No prior exams were available for comparison. There are scattered fibroglandular tissues in both breasts. Benign appearing intramammary node noted in the right breast, posterior depth, upper outer quadrant.No suspicious mass, architectural distortion, malignant type calcification, or lymph node abnormality detected. IMPRESSION: INCOMPLETE ASSESSMENT: ADDITIONAL IMAGING EVALUATION RECOMMENDEDBenign findings bilaterally. Additional evaluation of the right breast pain with right breast ultrasound is requested and currently in progress.Bud mcnally/:11/16/2018 11:41:08 Multiple Coil Winder: Heather WONG, [facility]FWMammogram BI-RADS: 0 Indeterminate
[2021-11-30 17:41] LABS: Arterial Blood Carboxyhemoglob 0.6 % (0-1.5); Blood Gas Oxyhemoglobin 95.4 % (94-97); Blood O2 Saturation 97.4 % (92-98.5)
[2021-11-30] MEDS ORDERED: ALBUTEROL 2.5 MG/3 ML NEB SOL ONE (17:48)
[2021-11-30] MEDS ORDERED: IPRATROPIUM BROM 0.5MG/2.5ML ONE (17:48)
[2021-11-30 18:02] LABS: Absolute Lymphocytes (CBC) 3.1 K/uL (0.7-4.9); Hematocrit 37.8 % (36.0-45.0); Lymphocytes % 18.9 % (15.3-44.8); MCV 89.6 fL (80-100); MPV 9.6 fL (7.6-11.3); RBC Red Blood Cell Count 4.21 M/uL (3.86-4.86)
[2021-11-30 18:25] LABS: Bilirubin Total 0.4 mg/dL (0.2-1.0); Magnesium 2.4 mg/dL (1.8-2.4); Potassium 3.5 mmol/L (3.5-5.1); Protein, Total 6.8 g/dL (6.4-8.2); Troponin High Sensitivity 16.2 pg/mL (<58.9)
--- NOTE | 2021-11-30 18:42 | RAD REPORT ---
EXAM DESCRIPTION: [facility] Single View11/30/2021 6:04 pm CLINICAL HISTORY: Shortness of breath COMPARISON: none FINDINGS: Mild medial right basilar lung opacity Left lung appears clear of acute infiltrate. The heart is normal size IMPRESSION: Mild medial right basilar lung opacity may represent a mild infiltrate or confluence of ribs and vessels.
--- NOTE | 2021-11-30 18:48 | EDPHYS ---
Physician Documentation [facility] Name: Renetta Plata Age: 66 yrs Sex: Female : 1955 Arrival Date: 11/30/2021 Time: 16:57 Bed 28 Private MD: Franci Valdivia ED Physician Jacquie Bhatt HPI: 11/30 17:18 This 66 yrs old Female presents to ER via Wheelchair with complaints of Breathing sd2 Difficulty. 17:18 66-year-old female with a history of COPD who presents with a chief complaint of sd2 difficulty breathing. She reports she was recently diagnosed with COVID and discharged from the hospital on on 2 L nasal cannula. She reports she never felt like her breathing was significantly improved and she continued to have difficulty at home. She called her doctor's office and was told to return to the ER. She has been monitoring her oxygen levels at home on her 2 L nasal cannula and has not noticed any desaturations. She denies any fevers, vomiting, diarrhea or urinary symptoms. She reports she has been retested for COVID and was negative. She reports significant difficulty breathing especially with coughing that has not been improved with the Tessalon Perles given to her previously as well as with any exertion. She does endorse shortness of breath at rest as well.. Historical: - Allergies: 17:03 PENICILLINS; hb - PMHx: 17:03 COPD; hb - Immunization history:: Adult Immunizations up to date, Client reports receiving the 2nd dose of the Covid vaccine, Last tetanus immunization: unknown. - Social history:: Smoking status: Patient reports the use of cigarette tobacco products, smokes one pack cigarettes per day. Reports she quit smoking when she got sick with covid 2 weeks ago. ROS: 17:18 Constitutional: Negative for fever, chills, and weight loss, Eyes: Negative for injury, sd2 pain, redness, and discharge, Cardiovascular: Negative for chest pain, palpitations, and edema, Respiratory: Positive for SOB,cough and wheezing Abdomen/GI: Negative for abdominal pain, nausea, vomiting, diarrhea. MS/Extremity: Negative for injury and deformity, Skin: Negative for injury, rash, and discoloration, Neuro: Negative for headache, numbness and tingling. Exam: 17:18 Constitutional: This is a well developed, well nourished patient who is awake, alert, sd2 and in no acute distress. Head/Face: Normocephalic, atraumatic. Eyes: EOMI, normal conjunctiva bilaterally Chest/axilla: Normal chest wall appearance and motion. Nontender with no deformity. Cardiovascular: Regular rate and rhythm with a normal S1 and S2. No gallops, murmurs, or rubs. 2+ distal pulses. Respiratory: Lungs have equal breath sounds bilaterally, clear to auscultation. No rales, rhonchi or wheezes noted. No retractions. Tachypnea present. Abdomen/GI: Soft, non-tender, with normal bowel sounds. No guarding or rebound. No evidence of tenderness throughout. Skin: Warm, dry with normal turgor. Normal color with no rashes, no lesions, and no evidence of cellulitis. MS/ Extremity: Pulses equal, no cyanosis. Neurovascular intact. Full, normal range of motion. Ambulatory without difficulty. Psych: Awake, alert, with orientation to person, place and time. Behavior, mood, and affect are within normal limits. Vital Signs: 17:01 BP 170 / 92; Pulse 82; Resp 24; Temp 97.4; Pulse Ox 99% on R/A; Weight 47.63 kg; Height hb 4 ft. 11 in. (149.86 cm); Pain 0/10; 18:11 BP 137 / 73; Pulse 81; Resp 22; Pulse Ox 97% on 2 lpm NC; kb3 19:00 BP 136 / 77; Pulse 88; Resp 24; Pulse Ox 98% on 2 lpm NC; kb3 20:00 BP 134 / 68; Pulse 85; Resp 20; Pulse Ox 97% on 2 lpm NC; kb3 21:00 BP 137 / 67; Pulse 79; Resp 20; Pulse Ox 99% on 2 lpm NC; kb3 17:01 Body Mass Index 21.21 (47.63 kg, 149.86 cm) hb MDM: 17:06 Patient medically screened. sd2 17:18 Differential diagnosis: Differential diagnosis includes but is not limited to: ACS, sd2 DVT/PE, pneumothorax, dissection, musculoskeletal, anxiety, anemia, electrolyte abnormality, pneumonia, CHF, COPD among others. Data reviewed: vital signs, nurses notes, old medical records. 18:45 Data reviewed: lab test result(s), EKG, radiologic studies. Counseling: I had a sd2 detailed discussion with the patient and/or guardian regarding: the historical points, exam findings, and any diagnostic results supporting the discharge/admit diagnosis, lab results, radiology results, the need for further work-up and treatment in the hospital. ED course: Spoke with COLTON Lane, who accepts the patient as an admission on behalf of Dr. Christina.. 11/30 17:18 Order name: CBC with Diff; Complete Time: 18:31 sd2 11/30 17:18 Order name: CMP; Complete Time: 18:31 sd2 11/30 17:18 Order name: Magnesium; Complete Time: 18:31 sd2 11/30 17:18 Order name: Troponin High Sensitivity; Complete Time: 18:31 sd2 11/30 17:18 Order name: BNP; Complete Time: 18:31 sd2 11/30 17:18 Order name: ABG; Complete Time: 17:54 sd2 11/30 17:18 Order name: EKG; Complete Time: 17:19 sd2 11/30 17:18 Order name: XRAY Chest (1 view); Complete Time: 18:45 sd2 11/30 18:51 Order name: COVID-19 SARS RT PCR (Document "Date of Onset" if Symptomatic) la1 Administered Medications: 18:00 Drug: DuoNeb (albuterol 2.5 mg, ipratropium 0.5 mg) (3:1) (2.5 mg - 0.5 mg) 3 ml Route: kb3 Nebulizer; 19:00 Follow up: Response: No adverse reaction kb3 19:34 Drug: LevaQUIN (levofloxacin) 500 mg Volume: 100 ml; Route: IVPB; Infused Over: 60 kb3 mins; Site: right forearm; 20:40 Follow up: Response: No adverse reaction; IV Status: Completed infusion; IV Intake: kb3 100ml Disposition Summary: 11/30/21 18:47 Hospitalization Ordered Hospitalization Status: Observation sd2 Provider: Tre Christina Location: Telemetry/MedSurg (observation) sd2 Condition: Stable sd2 Problem: an acute exacerbation sd2 Symptoms: have improved sd2 Bed/Room Type: [facility] Room Assignment: 418(09/17/22 20:59) cg Diagnosis - Coronavirus infection, unspecified sd2 - Acute respiratory failure with hypoxia sd2 - COPD/ Chronic obstructive pulmonary disease, unspecified sd2 Forms: - Medication Reconciliation Form sd2 - SBAR form sd2 Signatures: Dispatcher [employer] EDDomingo Storey, [place]-C SEARCH SPECIALIST-Cla1 Lilian Nelson RN RN cg Khushboo Medina RN RN Jacquie Bhatt MD MD sd2 Rajani Castellanos RN RN kb3 Corrections: (The following items were deleted from the chart) 19:41 17:30 Social history: Smoking status: Patient denies any tobacco usage or history of. kb3 kb3 20:59 18:47 sd2 cg
--- NOTE | 2021-11-30 18:48 | ER ---
Nurse's Notes [facility] Name: Renetta Plata Age: 66 yrs Sex: Female : 1955 Arrival Date: 11/30/2021 Time: 16:57 Bed 28 Private MD: Franci Valdivia Diagnosis: Coronavirus infection, unspecified;Acute respiratory failure with hypoxia;COPD/ Chronic obstructive pulmonary disease, unspecified Presentation: 11/30 17:01 Chief complaint: Patient states: "I was in [facility] for COVID pneumonia, sent hb home 3 days ago, I am still struggling to breathe." Hx of COPD, on 2LNC home O2. Coronavirus screen: Client presents with at least one sign or symptom that may indicate coronavirus-19. Standard/surgical mask placed on the client. Provider contacted for isolation considerations. Ebola Screen: No symptoms or risks identified at this time. Risk Assessment: Do you want to hurt yourself or someone else? Patient reports no desire to harm self or others. Onset of symptoms is unknown. 17:01 Method Of Arrival: Wheelchair hb 17:01 Acuity: RICARDO 3 hb 18:00 Initial Sepsis Screen: Does the patient meet any 2 criteria? No. Patient's initial kb3 sepsis screen is negative. Does the patient have a suspected source of infection? Yes: Productive cough/pneumonia. Triage Assessment: 18:00 General: Appears in no apparent distress. uncomfortable, Behavior is calm, cooperative. kb3 Respiratory: Reports shortness of breath cough that is labored breathing pain with cough Onset: The symptoms/episode began/occurred 1 week, the patient has moderate shortness of breath. Historical: - Allergies: 17:03 PENICILLINS; hb - PMHx: 17:03 COPD; hb - Immunization history:: Adult Immunizations up to date, Client reports receiving the 2nd dose of the Covid vaccine, Last tetanus immunization: unknown. - Social history:: Smoking status: Patient reports the use of cigarette tobacco products, smokes one pack cigarettes per day. Reports she quit smoking when she got sick with covid 2 weeks ago. Screenin:30 Abuse screen: Denies threats or abuse. Denies injuries from another. Nutritional kb3 screening: No deficits noted. Tuberculosis screening: No symptoms or risk factors identified. Fall Risk No fall in past 12 months (0 pts). Secondary diagnosis (15 points) impaired mobility, IV access (20 points). Ambulatory Aid- None/Bed Rest/Nurse Assist (0 pts). Gait- Weak (10 pts.). Mental Status- Oriented to own ability (0 pts). Assessment: 17:30 General: Appears in no apparent distress. Behavior is calm, cooperative, Received care kb3 of pt from triage. Pt is AAO x4. Reports she was discharged from [facility] 2 days ago after being admitted for 4 days with covid. Pt reports she went home on oxygen but is not feeling any better. Pt reports SOB, worse with activity, cough. denies fever. States symptoms started 2 weeks ago.. 17:30 Pain: Denies pain. Cardiovascular: Rhythm is sinus rhythm. Respiratory: Airway is kb3 patent Respiratory effort is even, unlabored, Breath sounds are clear bilaterally. Breath sounds are diminished bilaterally. Vital Signs: 17:01 BP 170 / 92; Pulse 82; Resp 24; Temp 97.4; Pulse Ox 99% on R/A; Weight 47.63 kg; Height hb 4 ft. 11 in. (149.86 cm); Pain 0/10; 18:11 BP 137 / 73; Pulse 81; Resp 22; Pulse Ox 97% on 2 lpm NC; kb3 19:00 BP 136 / 77; Pulse 88; Resp 24; Pulse Ox 98% on 2 lpm NC; kb3 20:00 BP 134 / 68; Pulse 85; Resp 20; Pulse Ox 97% on 2 lpm NC; kb3 21:00 BP 137 / 67; Pulse 79; Resp 20; Pulse Ox 99% on 2 lpm NC; kb3 17:01 Body Mass Index 21.21 (47.63 kg, 149.86 cm) ED Course: 16:57 Patient arrived in ED. am2 16:57 Franci Valdivia MD is Private Physician. am2 16:58 Jacquie Bhatt MD is Attending Physician. sd2 17:03 Triage completed. hb 17:04 Arm band placed on. hb 17:14 Rajani Castellanos, [facility] is Primary Nurse. kb3 17:30 Patient has correct armband on for positive identification. Bed in low position. Call kb3 light in reach. Side rails up X2. Warm blanket given. Pillow given. 17:30 No provider procedures requiring assistance completed. Inserted saline lock: 20 gauge kb3 in right forearm, using aseptic technique. Blood collected. Oxygen administration via nasal cannula \\T\\ 2L/min. 18:05 XRAY Chest (1 view) In Process Unspecified. EDMS 18:46 Tre Christina MD is Hospitalizing Provider. sd2 21:24 Patient admitted, IV remains in place. kb3 Administered Medications: 18:00 Drug: DuoNeb (albuterol 2.5 mg, ipratropium 0.5 mg) (3:1) (2.5 mg - 0.5 mg) 3 ml Route: kb3 Nebulizer; 19:00 Follow up: Response: No adverse reaction kb3 19:34 Drug: LevaQUIN (levofloxacin) 500 mg Volume: 100 ml; Route: IVPB; Infused Over: 60 kb3 mins; Site: right forearm; 20:40 Follow up: Response: No adverse reaction; IV Status: Completed infusion; IV Intake: kb3 100ml Medication: 17:30 VIS not applicable for this client. kb3 Intake: 20:40 IV: 100ml; Total: 100ml. kb3 Outcome: 18:47 Decision to Hospitalize by Provider. sd2 21:23 Admitted to Med/surg accompanied by tech, via stretcher, with oxygen, Report called to bhupinder Archer RN 21:24 Condition: stable kb3 21:55 Patient left the ED. mw2 Signatures: Dispatcher [employer] EDME Khushboo Medina RN RN Sharmaine Sarmiento am2 Vanesa Petersen mw2 Jacquie Bhatt MD MD sd2 Rajani Castellanos RN RN kb3 Corrections: (The following items were deleted from the chart) 17:04 17:01 Chief complaint: Patient states: "I was in [facility] for COVID pneumonia, hb sent home 3 days ago, I am still struggling to breathe." 19:41 17:30 Social history: Smoking status: Patient denies any tobacco usage or history of. kb3 kb3 21:14 18:11 BP 137 / 73; Pulse 81bpm; Resp 22bpm; Pulse Ox 97%; kb3 kb3 21:14 19:00 BP 136 / 77; Pulse 88bpm; Resp 24bpm; Pulse Ox 98%; kb3 kb3 21:23 18:11 BP 137 / 67; Pulse 79bpm; Resp 20bpm; Pulse Ox 99% 2 lpm Nasal Cannula; kb3 kb3
--- NOTE | 2021-11-30 19:37 | P.HP ---
Certification for Inpatient Patient admitted to: Observation With expected LOS: <2 Midnights Patient will require the following post-hospital care: None Practitioner: I am a practitioner with admitting privileges, knowledge of patient current condition, hospital course, and medical plan of care. Services: Services provided to patient in accordance with Admission requirements found in Title 42 Section 412.3 of the Code of Federal Regulations Patient History Date of Service: 11/30/21 Reason for admission: COPD exacerbation/pneumonia History of Present Illness: 66-year-old female with history of COPDrecently placed on home oxygen who also recently tested positive for COVID on Thursday the presents the emergency department for shortness of breath. She reports she was admitted at [facility] on Thursday the and discharged on the for COPD exacerbation. She was discharged on home oxygen at 2 L and on Decadron p.o. She feels as if her shortness of breath has gotten significantly worse since she was discharged in the hospital at [facility] and therefore presented to the emergency department here for further evaluation. During her stay in the emergency department she had labs drawn which were significant for an elevated white blood cell count of 16.2 mildly elevated BNP 1485 ABG was performed on 2 L per nasal cannula which demonstrated a pH of 7.41 PCO2 48.8 and PO2 of 113. Patient with dyspnea at rest, expiratory wheezing present on exam chest x-ray revealed mild medial right basilar lung opacity may represent infiltrate or confluence of ribs and vessels. ED provider wishes to admit under observation for COPD exacerbation/pneumonia. - Past Medical/Surgical History -: COPD-on home -: Hypothyroidism -: Hysterectomy -: Splenectomy Psychosocial/ Personal History: Patient is retired, lives alone - Family History Family History: Reviewed- Non-Contributory - Family History Brother -: Cancer Sister -: Cancer - Social History Smoking Status: Former smoker Alcohol use: No CD- Drugs: No Caffeine use: Yes Place of Residence: Home Review of Systems 10-point ROS is otherwise unremarkable Respiratory: Cough, Dry, Shortness of Breath, SOB with Excertion, Wheezing Physical Examination - Physical Exam General: Alert, In no apparent distress, Oriented x3 HEENT: Atraumatic, PERRLA, Mucous membr. moist/pink, EOMI, Sclerae nonicteric Neck: Supple, 2+ carotid pulse no bruit, No LAD, Without JVD or thyroid abnormality Respiratory: Diminished, Expiratory wheezes, Rhonchi/gurgles Cardiovascular: No edema, Regular rate/rhythm, Normal S1 S2 Gastrointestinal: Normal bowel sounds, No tenderness Musculoskeletal: No tenderness Integumentary: No rashes Neurological: Normal gait, Normal speech, Normal strength at 5/5 x4 extr, Normal tone, Normal affect Lymphatics: No axilla or inguinal lymphadenopathy - Studies Laboratory Data (last 24 hrs) 11/30/21 17:50: Sodium 144, Potassium 3.5, BUN 24 H, Creatinine 0.60, Glucose 116 H, Magnesium 2.4, Total Bilirubin 0.4, AST 14 L, ALT 25, Alkaline Phosphatase 58 11/30/21 17:50: WBC 16.20 H, Hgb 12.1, Hct 37.8, Plt Count 520 H Assessment and Plan - Plan Assessment: Dyspnea secondary to COPD with exacerbation-on home O2 suspected right basilar pneumonia COVID-19 positive Hypothyroidism Plan: Dyspnea secondary to COPD with exacerbation-on home O2: Continue ICS, steroids, nebulizer treatments, incentive spirometry. Patient on 2 L per nasal cannula at home with ambulatory saturations, ABG acceptable this time. Can likely be discharged tomorrow. suspected right basilar pneumonia: SIRS criteria are present including leuk ocytosis, respiratory rate greater than 20 although I believe the leukocytosis is present from her steroid useDecadron as well as tachypnea from COPD exacerbation. She will be treated with Levaquin, obtain sputum culture. COVID-19 positive: Reports testing positive for COVID-19 on Thursday of this week. Seems her symptoms are more related to COPD with exacerbation. Continue Decadron. Hypothyroidism: Continue home medications. DVT PPX: Lovenox Code status: Full Discharge Plan: Home Plan to discharge in: 24 Hours - Advance Directives Does patient have a Living Will: No Does patient have a Durable POA for Healthcare: No - Code Status/Comfort Care Code Status Assessed: Yes (Full code) Critical Care: No Time Spent Managing Pts Care (In Minutes): 70
[2021-11-30] MEDS ORDERED: Levofloxacin500mg IV 500 MG/100 ML BAG IV ONE (19:38)
[2021-11-30] MEDS ORDERED: IPRATROPIUM BROM 0.5MG/2.5ML NEB PRN (21:49)
[2021-11-30] MEDS ORDERED: DULERA 200/5 (MOMETASONE/FORMOTEROL) INHALER IH SCH (21:49)
[2021-11-30] MEDS ORDERED: ONDANSETRON 4 MG/2 ML VIAL IV PRN (21:49)
[2021-11-30] MEDS ORDERED: ALBUTEROL 2.5 MG/3 ML NEB SOL NEB PRN (21:49)
[2021-11-30 22:43] VITALS: BMI 21.2
[2021-12-01 05:35] LABS: Absolute Lymphocytes (CBC) 5.4 K/uL (0.7-4.9); Lymphocytes % 32.8 % (15.3-44.8); MCV 90.5 fL (80-100); MPV 9.7 fL (7.6-11.3); RBC Red Blood Cell Count 4.08 M/uL (3.86-4.86)
[2021-12-01 05:48] LABS: Albumin 2.7 g/dL (3.4-5.0); Bilirubin Total 0.4 mg/dL (0.2-1.0); Potassium 3.4 mmol/L (3.5-5.1); Protein, Total 6.2 g/dL (6.4-8.2)
[2021-12-01] MEDS ORDERED: dexAMETHasone 4 MG TAB PO SCH (08:00)
[2021-12-01 08:13] VITALS: BP 144/69; TEMP 97.6
[2021-12-01] MEDS ORDERED: levoFLOXacin 750 MG TAB PO SCH (09:00)
[2021-12-01] MEDS ORDERED: ENOXAPARIN 40 MG/0.4 ML SQ SCH (09:00)
[2021-12-01] MEDS ORDERED: POTASSIUM CL SA 10 MEQ TAB PO ONE (09:00)
[2021-12-01] MEDS ORDERED: DULERA 200/5 (MOMETASONE/FORMOTEROL) INHALER IH SCH (09:00)
--- NOTE | 2021-12-01 09:03 | P.PN ---
Subjective Date of Service: 12/01/21 Chief Complaint: COPD exacerbation/pneumonia Patient is 66 years of age with a history of COPD recently quit smoking tested positive for COVID presented with shortness of breath just discharged on home oxygen and dexamethasone is that her shortness of breath had gotten progressively worse and it appeared in the hospital she is currently doing much better very stable mildly hypercarbic Review of Systems General: Weakness Respiratory: Shortness of Breath Physical Examination - Vital Signs Temperature: 97.6 F Blood Pressure: 144/69 Pulse: 72 Respirations: 16 Pulse Ox (%): 98 - Physical Exam General: Alert, Oriented x3 Respiratory: Clear to auscultation bilaterally, Diminished Cardiovascular: No edema, Regular rate/rhythm, Normal S1 S2 Gastrointestinal: Normal bowel sounds, Soft and benign - Studies Laboratory Data (last 24 hrs) 11/30/21 17:50: Sodium 144, Potassium 3.5, BUN 24 H, Creatinine 0.60, Glucose 116 H, Magnesium 2.4, Total Bilirubin 0.4, AST 14 L, ALT 25, Alkaline Phosphatase 58 11/30/21 17:50: WBC 16.20 H, Hgb 12.1, Hct 37.8, Plt Count 520 H Assessment And Plan - Current Problems (Diagnosis) (1) COPD exacerbation Current Visit: Yes Status: Acute Plan: Patient is 66 years of age recently quit smoking. COPD exacerbation she is doing better chest x-ray shows COPD changes patient is on Advair vital signs are stable oxygenation satisfactory stable to be discharged home on Decadron White count is mildly elevated Discharge Plan: Home
[2021-12-01 12:27] VITALS: O2SAT 98
== END 2021-12-01 11:30 | disposition home or self-care (01) ==
LOC: ER 16:55 → ERHOLD 19:37 → 4TH 21:28
PROVIDERS: ADMIT Internal Medicine Sleep Medicine; ATTEND Internal Medicine Sleep Medicine
DX: J44.1 Chronic obstructive pulmonary disease with (acute) exacerbation (principal); U07.1 COVID-19; E03.9 Hypothyroidism, unspecified; Z87.891 Personal history of nicotine dependence; Z88.0 Allergy status to penicillin
CPT/HCPCS: 96365; 85025 ×2; 36415; 83735; 84484; 80053 ×2; 84145; 83880; 71045; 94010; 94640; 82805; 99285; U0003; J8540; J1650; G0378 ×3; J3535